=== PATIENT | male | born 1980 | race Caucasian/White ===

== ENCOUNTER → 2019-06-25 | Outpatient (CLI) | payer OTHER ==
--- NOTE | 2019-06-25 13:05 | RAD ---
EXAM: Right ankle, 3 views; right foot, 3 views. HISTORY: Pain. COMPARISON: None. FINDINGS: 3 views of the right ankle and foot are obtained. There is no fracture, dislocation or subluxation. The ankle mortise is intact. No osteochondral lesion is seen. There is a small bone island within the anterior talus. IMPRESSION: No acute osseous finding. Electronically signed by: Sapna Thurston MD (06/25/2019 1:02 PM) [facility]
--- NOTE | 2019-06-25 13:05 | RAD ---
EXAM: Right ankle, 3 views; right foot, 3 views. HISTORY: Pain. COMPARISON: None. FINDINGS: 3 views of the right ankle and foot are obtained. There is no fracture, dislocation or subluxation. The ankle mortise is intact. No osteochondral lesion is seen. There is a small bone island within the anterior talus. IMPRESSION: No acute osseous finding. Electronically signed by: Sapna hTurston MD (06/25/2019 1:02 PM) [facility]
== END | disposition home or self-care (01) ==
LOC: DXRAD 12:39
PROVIDERS: ATTEND Family Medicine
DX: M25.571 Pain in right ankle and joints of right foot (principal); M79.671 Pain in right foot
CPT/HCPCS: 73610; 73630